=== PATIENT | female | born 1980 | race Two or more races ===

== ENCOUNTER 2022-10-07 12:30 | Inpatient (IN) | payer OTHER ==
[~2022-10-07] VITALS: Ht 165.1 cm; Wt 51.3 kg
[2022-10-14] MEDS ORDERED: IBUPROFEN800 MG PO (07:33)
[2022-10-14] MEDS ORDERED: TRAMADOL HCL50 MG PO (07:33)
[2022-10-14] MEDS ORDERED: GABAPENTIN300 MG PO (07:33)
[2022-10-18] MEDS ORDERED: PAIN RELIEVER500 M2 PO (08:13)
[2022-10-18] MEDS ORDERED: POTASSIUM99 M1 PO (08:13)
[2022-10-18] MEDS ORDERED: NIFEREX TABLET1 EACH PO (08:13)
[2022-10-18] MEDS ORDERED: PEPCID AC20 MG PO (08:14)
== END 2022-10-18 09:17 | disposition home or self-care (01) | DRG 743 ==
LOC: O/R 10-12 08:20 → OB/GYN 10-12 08:20 → SURH 10-12 11:30 → OB/GYN 10-12 15:34
PROVIDERS: ADMIT Obstetrics & Gynecology Gynecology; ATTEND Obstetrics & Gynecology Gynecology
PROC: 0UT70ZZ Resection of Bilateral Fallopian Tubes, Open Approach (ICD-10-PCS; 2022-10-12)
PROC: 0UT90ZZ Resection of Uterus, Open Approach (ICD-10-PCS; principal; 2022-10-12 11:30)
PROC: BW4GZZZ Ultrasonography of Pelvic Region (ICD-10-PCS; 2022-10-14)
PROC: BW21ZZZ Computerized Tomography (CT Scan) of Abdomen and Pelvis (ICD-10-PCS; 2022-10-16)
DX: D25.1 Intramural leiomyoma of uterus (principal); N72 Inflammatory disease of cervix uteri; N70.11 Chronic salpingitis; N73.6 Female pelvic peritoneal adhesions (postinfective); Z20.822 Contact with and (suspected) exposure to COVID-19; G89.18 Other acute postprocedural pain